=== PATIENT | female | born 1945 | race Caucasian/White ===

== ENCOUNTER 2016-04-18 15:21 | Emergency (ER) | payer OTHER ==
[2016-04-18] MEDS ORDERED: DILAUDID 1 MG/ML AMP ONE (16:57)
[2016-04-18] MEDS ORDERED: CEFTRIAXONE 1 GM VIAL ONE (18:59)
[2016-04-18] MEDS ORDERED: SODIUM CHLORIDE 0.9% 100 ML IV ONE (18:59)
== END 2016-04-18 19:33 | disposition home or self-care (01) ==
LOC: ER 15:21
DX: J15.9 Unspecified bacterial pneumonia (principal); I50.9 Heart failure, unspecified; J44.9 Chronic obstructive pulmonary disease, unspecified; E05.00 Thyrotoxicosis with diffuse goiter without thyrotoxic crisis or storm; F17.200 Nicotine dependence, unspecified, uncomplicated; E11.9 Type 2 diabetes mellitus without complications
CPT/HCPCS: 36415; 71010; 80053; 81001; 83690; 85025; 87804; 96365; 96375; 99284; J0696; J1170